=== PATIENT | female | born 1980 | race Two or more races ===

== ENCOUNTER 2017-09-04 16:55 | Emergency (ER) | payer SELFPAY ==
[~2017-09-04] VITALS: Ht 177.8 cm; Wt 158.8 kg
[2017-09-04 18:06] VITALS: BP 98/70
[2017-09-04 18:24] LABS: APPEARANCE,URINE Slightly Cloudy (CLEAR); BILIRUBIN,URINE SMALL (NEGATIVE); BLOOD, URINE Moderate Ery/uL (NEGATIVE); COLOR,URINE Yellow (YELLOW); KETONES,URINE Trace (NEGATIVE); LEUKOCYTE ESTERASE ,URINE Negative (NEGATIVE); NITRITE, URINE Negative (NEGATIVE); PROTEIN,URINE Trace mg/dl (NEGATIVE); UGLUCOSE Negative (NEGATIVE); UROBILINOGEN,URINE 0.2 EU/dL (0.2)
[2017-09-04 18:45] LABS: BACTERIA,URINE Few /HPF (None Seen); CALCIUM OXALATE CRYSTALS,UR Moderate /HPF (None Seen); SQUAMOUS EPITHELIAL CELL,UR Few /HPF (None Seen); WBC,URINE 0-2 /HPF (0-3)
[2017-09-04 18:46] LABS: MUCUS,URINE Few /LPF (None Seen)
== END 2017-09-04 18:21 | disposition home or self-care (01) ==
LOC: ER 16:57
DX: Z13.89 Encounter for screening for other disorder (principal)
CPT/HCPCS: 80305; 81001; 84703; 99284; A4606; Z7610; 81000-TC